=== PATIENT | male | born 1950 | race Caucasian/White ===

== ENCOUNTER 2017-03-25 09:06 | Emergency (ER) | payer MEDICARE ==
[~2017-03-25] VITALS: Ht 167.6 cm; Wt 86.4 kg
[~2017-03-25 09:06] MED LIST: FLEXERIL PO; NAPROSYN500 MG PO
[2017-03-25] MEDS ORDERED: TAMSULOSIN0.4 MG PO (09:19)
[2017-03-25 09:26] LABS: HEMATOCRIT 42.1 % (39.0-50.0); HEMOGLOBIN 14.5 g/dl (14.0-18.0); IMMATURE GRANULOCYTES 0.5 % (0.0-1.0); MEAN CELL VOLUME 89.8 fL CALC (80.0-100.0); MEAN CORPUSCULAR HGB 30.9 pG CALC (26.0-32.0); MEAN CORPUSCULAR HGB CONC 34.4 g/L CALC (32.0-36.0); NEUT# 3.44 thou/uL (1.82-7.42); RED BLOOD COUNT 4.69 mill/uL (4.70-6.10); RED CELL DISTRI WIDTH 13.6 % (11.5-15.5)
[2017-03-25 09:43] LABS: ALBUMIN 4.2 g/dL (3.2-5.0); ALKALINE PHOSPHATASE 48 u/l (38-126); ANION GAP 15 (6-22 (CALC)); BILIRUBIN, TOTAL 1.2 mg/dL (0.0-1.4); BUN 15 mg/dL (8-23); BUN/CREATININE RATIO 16 (12-20 (CALC)); CALCIUM 8.5 mg/dL (8.4-10.2); CARBON DIOXIDE 24 mmol/l (22-30); CHLORIDE 107 mmol/l (95-108); GFR > 60 ML/MIN (>=60 (CALC)); GFR FOR AFR.AMER. > 60 ML/MIN (>=60 (CALC)); GLUCOSE 109 mg/dL (82-115); POTASSIUM 3.6 mmol/l (3.5-5.1); SGOT/AST 64 u/l (19-48); SGPT/ALT 49 u/l (11-66); SODIUM 143 mmol/l (137-146); TOTAL PROTEIN 7.2 g/dL (6.3-8.2)
[2017-03-25 09:55] LABS: MYOGLOBIN 345 ng/mL (0 - 121)
[2017-03-25] MEDS ORDERED: VALIUM5 MG PO (12:31)
[2017-03-25] MEDS ORDERED: MECLIZINE25 M1 PO (12:31)
[2017-03-25 13:16] VITALS: BP 93/51
== END 2017-03-25 13:21 | disposition home or self-care (01) ==
LOC: ED 09:06
PROVIDERS: Emergency Medicine
DX: R42 Dizziness and giddiness (principal); E80.20 Unspecified porphyria; Z86.73 Personal history of transient ischemic attack (TIA), and cerebral infarction without residual deficits

== ENCOUNTER 2018-04-27 07:48 | Day surgery (SDC) | payer MEDICARE ==
[~2018-04-27] VITALS: Ht 167.6 cm; Wt 86.2 kg
[~2018-04-27 07:48] MED LIST changes: +MECLIZINE25 M1 PO; +TAMSULOSIN0.4 MG PO; +VALIUM5 MG PO
[2018-04-27 09:33] VITALS: BP 130/73
== END 2018-04-27 09:51 | disposition home or self-care (01) ==
LOC: ENDO 07:48
PROVIDERS: ATTEND Surgery
PROC: 0DJD8ZZ Inspection of Lower Intestinal Tract, Via Natural or Artificial Opening Endoscopic (ICD-10-PCS; principal; 2018-04-27)
DX: Z12.11 Encounter for screening for malignant neoplasm of colon (principal); K57.30 Diverticulosis of large intestine without perforation or abscess without bleeding; Z80.0 Family history of malignant neoplasm of digestive organs